=== PATIENT | male | born 1930 | race Caucasian/White ===

== ENCOUNTER 2017-07-16 16:17 | Emergency (ER) | payer OTHER ==
[~2017-07-16] VITALS: Ht 170.2 cm; Wt 73.9 kg
[2017-07-16] MEDS ORDERED: TETANUS-DIPTH-ACEL PERTUSSIS 0.5ML SYRG IM ONE (16:30)
[2017-07-16] MEDS ORDERED: PROMETHAZINE HCL 25 MG/ML 1ML IV ONE (18:30)
[2017-07-16] MEDS ORDERED: MORPHINE SULFATE 4 MG/ML SYR/VIAL IV ONE (18:30)
[2017-07-16] MEDS ORDERED: LIDOCAINE 1% HCL (LOCAL ANESTH.) INJ 20ML MDV ONE ×2 (18:34→21:49)
[2017-07-16] MEDS ORDERED: cefTRIAXone 1GM/10ml IVPUSH 10 ML IV ONE (19:00)
[2017-07-16] MEDS ORDERED: LIDOCAINE 1% HCL (LOCAL ANESTH.) INJ 20ML MDV IN ONE (19:00)
[2017-07-16] MEDS ORDERED: LIDOCAINE 1% HCL (LOCAL ANESTH.) INJ 20ML MDV IJ ONE (23:45)
[2017-07-17 10:11] VITALS: BP 140/74
== END 2017-07-17 10:36 | disposition home or self-care (01) ==
LOC: EDBD 16:17 → ER 16:17
DX: S62.606A Fracture of unspecified phalanx of right little finger, initial encounter for closed fracture (principal); S01.111A Laceration without foreign body of right eyelid and periocular area, initial encounter; Y08.89XA Assault by other specified means, initial encounter; Y93.89 Activity, other specified; Y92.89 Other specified places as the place of occurrence of the external cause; Y99.8 Other external cause status
CPT/HCPCS: 12002; 12013; 29125; 70450; 70486; 72125; 73030; 73080; 73090; 73130; 90471; 90715; 96374; 96375; 99284; J2001; J2270; J2550